=== PATIENT | male | born 1990 | race Caucasian/White ===

== ENCOUNTER 2017-08-14 12:26 | Emergency (ER) | payer OTHER ==
[~2017-08-14] VITALS: Ht 175.3 cm; Wt 79.8 kg
[2017-08-14 12:43] VITALS: Ht 175.3 cm; Wt 79.8 kg
[2017-08-14 14:52] VITALS: BP 120/84
== END 2017-08-14 14:52 | disposition home or self-care (01) ==
LOC: ED 12:26
DX: M25.511 Pain in right shoulder (principal)